=== PATIENT | male | born 1990 | race Two or more races ===

== ENCOUNTER 2023-12-07 07:00 | Emergency (ER) | payer MEDICAID ==
[~2023-12-07] VITALS: Ht 175.3 cm; Wt 89.9 kg
[2023-12-07 07:05] VITALS: TEMP 98.6
[2023-12-07 07:15] VITALS: BP 110/72; PULSE 110; RESP 18; O2SAT 99
[2023-12-07] MEDS: KETOROLAC TROMETH 60MG/2ML VIAL IM ONE (08:14)
[2023-12-07] MEDS: DexAMETHasone SOD PHOS 10MG/1ML VIAL INJ IV ONE (08:15)
[2023-12-07] MEDS: SODIUM CHLORIDE 0.9% 1,000 ML IV ONE (08:15)
[2023-12-07] MEDS: ACETAMINOPHEN 500 MG TAB PO ONE (08:15)
[2023-12-07 08:52] LABS: Rapid Strep A Screen-Throat Negative
[2023-12-07 09:37] LABS: Rapid Influenza A Negative (Negative); Rapid Influenza B Negative (Negative)
[2023-12-07 09:38] LABS: COVID19 ANTIGEN SOFIA FIA NEGATIVE (NEGATIVE)
[2023-12-07] MEDS ORDERED: ACET500T58 PO (09:51)
[2023-12-07] MEDS ORDERED: LIDO2SOL26 MT (09:51)
[2023-12-07] MEDS ORDERED: PENI500T2 PO (09:51)
[2023-12-07] MEDS ORDERED: IBUP1TAB5 PO (09:51)
[2023-12-07] MEDS: cefTRIAXone SOD 500 MG VL IM ONE (10:12)
== END 2023-12-07 10:26 | disposition home or self-care (01) ==
LOC: ER 07:00
DX: J03.90 Acute tonsillitis, unspecified (principal); Z20.822 Contact with and (suspected) exposure to COVID-19
CPT/HCPCS: 36415; 87070; 87077; 87426; 87804; 87880; 96360; 96372; 99284; J0696; J1100; J1885; J7030